=== PATIENT | female | born 1955 | race Caucasian/White ===

== ENCOUNTER → 2023-07-31 15:49 | Outpatient (REF) | payer MEDICARE, OTHER, SELFPAY ==
--- NOTE | 2023-08-14 08:42 | OID.L.PAT ---
Pulmonary Nodule Pat Letter
- -
08/14/23
ARUN LAKE
[address] [facility]
[place], [place] [address]
Deajohn DIAS,
A pulmonary nodule was seen on an imaging study done by [facility]. This was reviewed by the [facility] Pulmonary Nodule Advisory Board and the following recommendation was made:
Recommendation: Follow up with a Putty And Patch Worker
If you have any questions, please do not hesitate to contact your primary care physician. If you are in need of a Physician, you can go to [email or web address] and click on 'Find a Provider'. Type 'Family Medicine' in the search.
Oncology Nurse Navigator
[facility]
[phone]
--- NOTE | 2023-08-14 08:42 | OID.L.REC ---
Pulmonary Nodule Follow Up
- Recommendation
08/14/23
Pulmonary Nodule Review Recommendations
Your patient, ARUN LAKE, had a pulmonary nodule seen on a CT Chest done on 07/31/23 in the [facility] Department.
This was reviewed by the [facility] Pulmonary Nodule Advisory Board and the following recommendation was made:
Recommendation: Follow up with a Meter Reader Inspector
If you have any questions please do not hesitate to contact us.
Sincerely,
Oncology Nurse Navigator
[facility]
[phone]
== END ==
LOC: HWRAD 15:49
PROVIDERS: ATTENDING PHYSICIAN Family Medicine
DX: R91.1 Solitary pulmonary nodule (principal)
CPT/HCPCS: 71250

== ENCOUNTER → 2023-10-09 10:39 | Outpatient (REF) | payer MEDICARE, OTHER, SELFPAY | LOC: RAD 10:39 | PROVIDERS: ATTENDING PHYSICIAN Internal Medicine; FAMILY PHYSICIAN Family Medicine | DX: R91.8 Other nonspecific abnormal finding of lung field (principal) | CPT/HCPCS: 71250 ==

== ENCOUNTER → 2024-05-16 11:08 | Outpatient (REF) | payer MEDICARE, OTHER, SELFPAY | LOC: HWRAD 11:08 | PROVIDERS: ATTENDING PHYSICIAN Internal Medicine; FAMILY PHYSICIAN Family Medicine | DX: R91.8 Other nonspecific abnormal finding of lung field (principal) | CPT/HCPCS: 71250 ==

== ENCOUNTER 2024-10-30 10:23 | Emergency (ER) | payer MEDICARE, OTHER, SELFPAY ==
[2024-10-30 10:26] VITALS: BP 162/100
[2024-10-30 11:01] VITALS: BP 130/116; BMI 27.7
[2024-10-30 11:15] LABS: % Basophils 0.6 % (0-2); % Eosinophils 3.2 % (0-6); % Immature Granulocytes 0.4 % (0-0.5); % Lymphocytes 18.5 % (20.5-51.1); % Monocytes 7.8 % (1.7-9.3); % Neutrophils 69.5 % (42.2-75.2); Absolute Basophils 0.1 10^3/uL (0-0.2); Absolute Eosinophils 0.3 10^3/uL (0-0.7); Absolute Lymphocytes 1.7 10^3/uL (1.2-3.4); Absolute Monocytes 0.7 10^3/uL (0.1-0.6); Absolute Neutrophils 6.2 10^3/uL (1.4-6.5); Hematocrit 42.6 % (37.0-47.0); Hemoglobin 14.5 g/dL (12.0-16.0); Mean Corpuscular Hgb 34.7 pg (27.0-31.0); Mean Corpuscular Volume 101.9 fL (81.0-99.0); Mean Platelet Volume 9.7 fL (7.4-10.4); Nucleated Red Blood Cells % 0 %; Platelet Count 276 10^3/uL (130-400); Red Blood Cell Count 4.18 10^6/uL (4.20-5.40); Red Cell Dist. Width 14.3 % (11.5-14.5)
[2024-10-30 11:53] LABS: ALT (SGPT) 21 U/L (0-35); AST (SGOT) 37 U/L (14-36); Albumin 4.1 g/dl (3.5-5.0); Alkaline Phosphatase 62 U/L (38-126); Blood Urea Nitrogen 9 mg/dl (7-17); Calcium 9.9 mg/dl (8.4-10.2); Carbon Dioxide 27 mmol/L (22-30); Chloride 102 mmol/L (98-107); Estimated Creatinine Clearance 85 ml/min; Glucose 94 mg/dl (70-99); Lipase 58 U/L (23-300); Potassium 4.6 mmol/L (3.5-5.1); Sodium 135 mmol/L (135-145); Total Protein 7.5 g/dl (6.3-8.2); eGFR > 60.00
[2024-10-30 12:00] VITALS: BP 144/77
[2024-10-30 12:34] LABS: Urine Albumin Negative (Neg - Trace); Urine Bilirubin Negative (Negative); Urine Character Clear (Clear); Urine Color Yellow; Urine Glucose Negative (Negative); Urine Ketone Negative (Negative); Urine Leukocyte Negative (Negative); Urine Nitrite Negative (Negative); Urine Occult Blood Negative (Negative); Urine Specific Gravity 1.005 (<1.030); Urine Urobilinogen Negative (Neg - 1+)
[2024-10-30 13:00] VITALS: BP 160/88
--- NOTE | 2024-10-30 14:22 | ED.GENMED ---
History of Present Illness
General
Chief Complaint: Abdominal Pain
Time Seen by Provider: 10/30/24 10:58
History of Present Illness
History of Present Illness:
61-year-old female presents to the emergency department for evaluation of left-sided lower abdominal pain. Pain is worse when she attempts to raise the left leg. Denies any fevers or chills. Denies nausea vomiting diarrhea or lower urinary tract
voiding symptoms. No history of intra-abdominal surgeries.
Review of Systems
Review of Systems
Allergies reviewed?: Yes
All Other Systems: ROS reviewed and negative except as documented in HPI and ROS
Phy Exam
Physical Exam
Physical Exam:
GEN: Well appearing, NAD, WDWN
HEENT: Oral mucosa moist, no scleral icterus
Cardiac: Regular rate
Lung: No respiratory distress, no tachypnea
Abdomen: Soft, grossly nontender
MSK: No gross deformity or injuries
Skin: Good color, no pallor or jaundice, no rashes
Neuro: AO x3, moves all extremities freely
Psych: Calm, cooperative
Course
Orders/Labs/Results
Orders:
Orders
10/30/24 11:07
IV Insert/Care/Rem.- Treatment PRN
10/30/24 11:09
Complete Blood Count/With Diff Urgent
Comprehensive Metabolic Panel Urgent
Lipase Urgent
10/30/24 11:27
CT Abd/Pel (IV only)-DH only Urgent
Comment:
Reason For Exam: LLQ pain
10/30/24 12:04
Urinalysis Reflex To Culture Urgent
Date Specimen was Collected: 10/30/24
Time Specimen was Collected: 11:07
10/30/24 14:22
Ketorolac [Toradol] 15 mg IV NOW STA
Abnormal Lab Results
10/30/24
11:09
RBC 4.18 L 10^6/uL
(4.20-5.40)
MCV 101.9 H fL
(81.0-99.0)
MCH 34.7 H pg
(27.0-31.0)
Absolute Monos (auto) 0.7 H 10^3/uL
(0.1-0.6)
Lymphocytes % 18.5 L %
(20.5-51.1)
AST 37 H U/L
(14-36)
10/30/24 11:09
10/30/24 11:09
Vital Signs
Initial and Last Documented VS:
Initial Vital Signs
Temp Pulse Resp BP Pulse Ox
98.2 F 81 18 162/100 97
10/30/24 10:26 10/30/24 10:26 10/30/24 10:26 10/30/24 10:26 10/30/24 10:26
Last Documented Vital Signs
Temp Pulse Resp BP Pulse Ox
98.2 F 81 18 160/88 96
10/30/24 10:26 10/30/24 10:26 10/30/24 10:26 10/30/24 13:00 10/30/24 13:00
MDM/Problems Addressed
MDM/Problems Addressed:
Patient's workup is grossly unremarkable, may be a musculoskeletal etiology to symptoms
*Critical Care Note
Total Time (30-74mins, 75-104mins- exclusive of procedures): Not Applicable
ED Attending Note
-
Portions of this chart may have been created with voice recognition software.� Occasional wrong word or��sound alike� substitutions may have occurred due to the inherent limitations of voice recognition software.
Discharge Plan
Departure
Patient Disposition: Home (Routine Discharge)
Date of Disposition: 10/30/24
Time of Disposition: 14:22
Patient with high blood pressure during this ER visit?: No
Discharge Problem:
Left sided abdominal pain
Instructions: Abdominal Pain
Prescriptions:
No Action
multivitamin 1 EACH tablet
1 ea PO DAILY
pravastatin 40 MG tablet
40 mg PO DAILY
metoprolol succinate [Toprol XL] 100 MG tablet extended release 24 hr
100 mg PO DAILY
calcium carbonate 500 MG tablet
500 mg PO DAILY
loratadine 10 MG tablet
10 mg PO DAILY
magnesium oxide 250 MG tablet
250 mg PO DAILY
esomeprazole magnesium [Nexium] 20 MG capsule,delayed release(DR/EC)
20 mg PO DAILY
folic acid 0.8 MG capsule
0.8 mg PO DAILY
cholecalciferol (vitamin D3) 2,000 UNITS tablet
2,000 units PO DAILY
oxycodone 5 MG tablet
5 mg PO Q6HPRN PRN (Reason: moderate-severe pain) Qty: 30 0RF
Rx Instructions:
1 tab moderate pain or 2 if pain severe
Dx total joint replacement
ongoing therapy
ondansetron HCl 4 MG tablet
4 mg PO Q6HPRN PRN (Reason: Nausea) Qty: 20 0RF
Rx Instructions:
Take 1/2 hour prior to Oxycodone if experiencing recurrent nausea.
celecoxib 200 MG capsule
200 mg PO DAILY Qty: 30 0RF
Rx Instructions:
Take with food.
Do not take within 2 hours odf Aspirin post-op.
mupirocin 1 APPLIC ointment
1 applic intranasal BID Qty: 1 0RF
Patient Comments:
pt last completed AM of surgery, started 3 days pre op BID.
methotrexate sodium 2.5 MG tablet
12.5 mg PO QUINTANILLA
acetaminophen 500 MG tablet
1,000 mg PO Q6H Qty: 60 0RF
Rx Instructions:
Do not exceed >4000 mg daily.
docusate sodium 100 MG capsule
100 mg PO BID Qty: 30 0RF
sennosides [senna] 8.6 MG capsule
8.6 mg PO BID Qty: 30 0RF
Aspirin 325 MG Tablet
325 mg PO DAILY Qty: 28 0RF
Rx Instructions:
Take daily x4 weeks for blood clot prevention.
lisinopril 10 MG tablet
10 mg PO DAILY Qty: 0 0RF
Rx Instructions:
Hold if systolic blood pressure <130 while on Oxycodone.
Simponi Aria:
1 dose IV [id number] Qty: 0 0RF
Rx Instructions:
DO NOT RESUME UNTIL APPROVED BY SURGEON
Referrals:
Suman Michelle, DO [Family Provider] -
Interventions
Interventions:
*Risk Screen - Suicide Last Done: 10/30/24 10:26
*General Assessment Last Done: 10/30/24 10:26
*Neglect/Abuse Screening Last Done: 10/30/24 10:26
*ED- Fall Risk Assessment Last Done: 10/30/24 10:26
*ED COVID-19 Vaccine History Last Done: 10/30/24 10:26
*Nursing Disposition Last Done: 10/30/24 14:57
ZE-Pkmvif-Frwnjiadnq Assessment Last Done: 10/30/24 11:14
Discharge Date and Time
Discharge Date/Time: 10/30/24 14:58
Print Language: FRENCH
[2024-10-30] MEDS: TORADOL 15 MG IV (14:41)
== END 2024-10-30 14:58 | disposition home or self-care (01) ==
LOC: EMR 10:23
PROVIDERS: Physician Assistant; EMERGENCY PHYSICIAN Emergency Medicine; FAMILY PHYSICIAN Family Medicine
DX: R10.32 Left lower quadrant pain (principal)
CPT/HCPCS: 99284; 96374; 74177; 80053; 81003; 83690; 85025; Q9967